=== PATIENT | female | born 1965 | race Caucasian/White ===

== ENCOUNTER 2016-06-27 16:04 | Emergency (ER) | payer SELFPAY ==
[~2016-06-27] VITALS: Ht 157.5 cm; Wt 67.2 kg
[2016-06-27 16:14] VITALS: BP 116/78; PULSE 91; RESP 16; TEMP 98.6; O2SAT 99
[2016-06-27] MEDS ORDERED: PENI250T59 PO (17:40)
[2016-06-27] MEDS ORDERED: HYDR-3533 PO (17:40)
--- NOTE | 2016-06-27 17:42 | PD ---
HPI Chief Complaint: Oral / Dental Pain or Problem Time Seen by Provider: 17:40 Travel History International Travel<30 days: No Contact w/Intl Traveler<30days: No Traveled to known affect area: No History of Present Illness HPI 50-year-old female presents to the emergency department for evaluation of right- sided dental pain. Patient states she has poor dentition and yesterday began to have pain in her right lower posterior molar as well as her right upper posterior molars. States that the pain has been persistent and is causing her to have a headache. She denies any fever, chills, nausea, vomiting, difficulty swallowing, swelling of the face. Denies , she is on control. No other complaints. PFSH Past Medical History Medical History: Denies Significant Hx Immunizations Current: Yes Influenza Vaccination: No ?: Not LMP: 2-3 YEARS AGO Menopausal: Yes Past Surgical History Surgical History: No Previous Surgery Social History Alcohol Use: No Tobacco Use: No (FORMER) Substance Use: No Allergies-Medications (Allergen,Severity, Reaction): Coded Allergies: Nonsteroidal Anti-Inflammatory Agts (Verified Allergy, Severe, PT HAS AN ULCER, 06/27/16) Reported Meds & Prescriptions Reported Meds & Active Scripts Active Penicillin Vk (Penicillin V Potassium) 250 Mg Tab 500 Mg PO Q8H 10 Days Lortab (Hydrocodone-Acetaminophen) 5-325 Mg Tab 1 Tab PO Q6H PRN Review of Systems Except as stated in HPI: all other systems reviewed are Neg Physical Exam Narrative GENERAL: Well-nourished and well-developed pleasant female patient in no acute distress who is nontoxic appearing. SKIN: Warm and dry. HEAD: Normocephalic and atraumatic. No facial swelling. EYES: No injection, drainage, or hyphema noted. PERRLA. EOMI. ENT: No nasal drainage noted. Oropharynx is clear and the TMs are normal with good landmarks. DENTAL: Poor dentition. Multiple dental caries to right upper and right lower molars. No swelling or erythema. NECK: Supple and the trachea is midline. CARDIOVASCULAR: Regular rate and rhythm. RESPIRATORY: Breath sounds are equal bilaterally with no accessory muscle use, wheezing, rhonchi, or crackles. NEUROLOGICAL: Awake, alert, and oriented. Normal speech and gait. Cranial nerves are grossly intact. Data Data Last Documented VS Vital Signs Date Time Temp Pulse Resp B/P Pulse Ox O2 Delivery O2 Flow Rate FiO2 06/27/16 16:14 98.6 91 16 116/78 99 Orders Acetamin-Hydrocod 325-5 Mg ([place] 5-325 (06/27/16 17:45) MDM Medical Decision Making Medical Screen Exam Complete: Yes Emergency Medical Condition: Yes Differential Diagnosis Dental caries versus dental pain versus dental infection Narrative Course 50-year-old female presents to the emergency department for evaluation of right- sided dental pain. Patient is afebrile, vital signs are stable. She has poor dentition and multiple dental caries. Discussed importance of follow-up with a dentist. We'll give her penicillin VK and pain medicine. Patient verbalizes understanding and agreement with treatment plan. Diagnosis Primary Impression: Pain due to dental caries Referrals: Dentist Patient Instructions: Dental Caries (ED), General Instructions Additional Instructions: Take medications as prescribed with food and a full glass of water. Do not take Lortab with alcohol or while driving. Follow-up with a Dentist as soon as possible. Return to the ED for any acute worsening of symptoms. Med/Other Pt SpecificInfo: Prescription(s) given Scripts Penicillin V Potassium (Penicillin Vk)250 Mg [id number] Mg PO Q8H 10 Days Ref 0 Prov:Jayson Harmon MD 06/27/16 Hydrocodone-Acetaminophen (Lortab)5-325 Mg Tab1 Tab PO Q6H PRN (PAIN GREATER THAN 6) #12 TAB Ref 0 Prov:Jayson Harmon MD 06/27/16 Disposition: 01 DISCHARGE HOME Condition: Stable Khushboo Olmedo Jun 27, 2016 17:42
[2016-06-27] MEDS ORDERED: ACETAMINOPHEN/HYDROcodone 325 MG/5 MG TAB PO ONE (17:45)
== END 2016-06-27 18:22 | disposition home or self-care (01) ==
LOC: PHEFT 16:04
DX: K02.9 Dental caries, unspecified (principal)
CPT/HCPCS: 99282

== ENCOUNTER 2016-09-05 20:10 | Emergency (ER) | payer SELFPAY ==
[~2016-09-05] VITALS: Ht 157.5 cm; Wt 69.0 kg
[~2016-09-05 20:10] MED LIST: HYDR-3533 PO; PENI250T59 PO
[2016-09-05 21:43] VITALS: BP 136/77; PULSE 97; RESP 12; TEMP 99.1; O2SAT 100
[2016-09-05 22:56] VITALS: BP 136/77; PULSE 97; RESP 18; TEMP 99.1; O2SAT 100
--- NOTE | 2016-09-05 23:06 | PD ---
HPI Chief Complaint: Fall Time Seen by Provider: 23:00 Travel History International Travel<30 days: No Contact w/Intl Traveler<30days: No Traveled to known affect area: No History of Present Illness HPI The patient is a 50-year-old female that slipped and fell at the wall while at 7 PM today this evening. She bumped her left elbow and complains of diffuse lumbar pain slightly to the right of the lumbar area. She denies any numbness, weakness or radiation of pain. She states that while while did not have the cones to Jd the wet floor. She states she does not have a history of low back pain. PFS Past Medical History Immunizations Current: Yes ?: Not LMP: UNKNOWN Menopausal: Yes Social History Alcohol Use: No Tobacco Use: No (FORMER) Substance Use: No Allergies-Medications (Allergen,Severity, Reaction): Coded Allergies: Nonsteroidal Anti-Inflammatory Agts (Verified Allergy, Severe, PT HAS AN ULCER, 09/05/16) Reported Meds & Prescriptions Reported Meds & Active Scripts Active No Active Prescriptions or Reported Medications Review of Systems Except as stated in HPI: all other systems reviewed are Neg Physical Exam Narrative GENERAL: The patient is alert, oriented 3 in no apparent distress. She does not appear in any way intoxicated. Her vital signs are normal. SKIN: Focused skin assessment warm/dry. HEAD: Atraumatic. Normocephalic. Neither raccoon eyes nor brar sign is present. EYES: Pupils equal and round. No scleral icterus. No injection or drainage. ENT: No nasal bleeding or discharge. Mucous membranes pink and moist. NECK: Trachea midline. No JVD. No tenderness or deformity is noted on the cervical spine. CARDIOVASCULAR: Regular rate and rhythm. No murmur appreciated. RESPIRATORY: No accessory muscle use. Clear to auscultation. Breath sounds equal bilaterally. GASTROINTESTINAL: Abdomen soft, non-tender, nondistended. Hepatic and splenic margins not palpable. MUSCULOSKELETAL: No obvious deformities. No clubbing. No cyanosis. No edema. There is slight swelling and tenderness over the left olecranon. Full range of motion is possible. No deformity is noted. There is slight tenderness without deformity over the lumbosacral spine on the right. Ears no spinous process deformity but the tenderness is 2 cm to the right of the midline. Straight leg raising is normal, deep tendon reflexes are +2 bilaterally both patella Achilles and pinprick is normal bilaterally. NEUROLOGICAL: Awake and alert. No obvious cranial nerve deficits. Motor grossly within normal limits. Normal speech. PSYCHIATRIC: Appropriate mood and affect; insight and judgment normal. Data Data Last Documented VS Vital Signs Date Time Temp Pulse Resp B/P Pulse Ox O2 Delivery O2 Flow Rate FiO2 09/06/16 00:33 18 09/06/16 00:01 80 125/71 97 Room Air 09/05/16 22:56 99.1 Orders Spine, Lumbar Comp W/Obliq (09/05/16 23:06) Elbow, Complete (4 Vws) (09/05/16 23:06) Oxycodone-Acetamin 7.5-325 Mg (Percocet (09/06/16 00:00) MDM Medical Decision Making Medical Screen Exam Complete: Yes Emergency Medical Condition: Yes Medical Record Reviewed: Yes Interpretation(s) The lumbar spine x-rays show early degenerative disc disease but no acute bony fracture. The left elbow shows no acute bony abnormality. Differential Diagnosis Fracture elbow, contusion elbow, acute lumbosacral strain, compression fracture back, other fracture/subluxation back Narrative Course The patient has an acute lumbosacral strain and contusion of the elbow. Plan: The patient cannot take nonsteroidal anti-inflammatory medications because of ulcer disease and she will be given Flexeril and Lortab 5 for pain. Rest is important, she states she does not work so she does not need a work excuse. She should follow-up with her primary care physician next week. Diagnosis Primary Impression: Acute lumbar back pain Additional Impression: Contusion of elbow, left Scripts No Active Prescriptions or Reported Meds Disposition: 01 DISCHARGE HOME Condition: Stable Fer Montgomery MD Sep 05, 2016 23:06
[2016-09-06] MEDS ORDERED: oxyCODONE/ACETAMINOPHEN 7.5 MG/325 MG TAB PO ONE
[2016-09-06 00:01] VITALS: BP 125/71; PULSE 80; RESP 18; O2SAT 97
--- NOTE | 2016-09-06 00:10 | RADHPO ---
EXAM DATE/TIME: 09/05/2016 23:10 [facility] COMPARISON: No previous studies available for comparison. INDICATIONS : Lower back pain after fall in a parking lot. MEDICAL HISTORY : None. SURGICAL HISTORY : None. ENCOUNTER: Initial ACUITY: 1 day PAIN SCORE: 4/10 LOCATION: Bilateral lower back FINDINGS: There are five non-rib bearing vertebral bodies. The vertebral bodies are in normal alignment withou t evidence of subluxation or scoliosis. The disc spaces are maintained. The posterior elements are intact without evidence of spondylolysis. The pedicles are intact. Bony mineralization is normal. No fracture is identified. CONCLUSION: 1. No acute findings. Early changes of degenerative disc disease. Helio Aguilar MD on September 06, 2016 at 0:05 Board Certified Radiologist. This report was verified electronically.
--- NOTE | 2016-09-06 00:12 | RADHPO ---
EXAM DATE/TIME: 09/05/2016 23:23 [facility] COMPARISON: No previous studies available for comparison. INDICATIONS : Left elbow pain after fall in a parking lot. MEDICAL HISTORY : None. SURGICAL HISTORY : None. ENCOUNTER: Initial ACUITY: 1 day PAIN SCORE: 8/10 LOCATION: Left elbow FINDINGS: Multiple view examination of the left elbow demonstrates no soft tissue swelling, joint effusion, or fracture. The osseous structures are in normal alignment. Bony mineralization is normal. CONCLUSION: 1. No acute bony abnormality. Helio Aguilar MD on September 06, 2016 at 0:08 Board Certified Radiologist. This report was verified electronically.
[2016-09-06 00:33] VITALS: RESP 18
[2016-09-06] MEDS ORDERED: CYCL1TAB29 PO (00:46)
[2016-09-06] MEDS ORDERED: HYDR-3533 PO (00:46)
[2016-09-06 00:59] VITALS: BP 130/75
== END 2016-09-06 01:06 | disposition home or self-care (01) ==
LOC: PHED 20:10
DX: S50.02XA Contusion of left elbow, initial encounter (principal); S39.012A Strain of muscle, fascia and tendon of lower back, initial encounter; W01.0XXA Fall on same level from slipping, tripping and stumbling without subsequent striking against object, initial encounter; Y92.512 Supermarket, store or market as the place of occurrence of the external cause; Y93.9 Activity, unspecified
CPT/HCPCS: 72110; 73080; 99283